=== PATIENT | male | born 1965 | race Caucasian/White ===

== ENCOUNTER 2021-02-01 05:52 | Emergency (ER) | payer OTHER ==
[~2021-02-01] VITALS: Ht 177.8 cm; Wt 75.1 kg
[2021-02-01] MEDS ORDERED: MORPHINE 4 MG/ML 1ML VIAL/SYRINGE (J2270) IV ONE (06:20)
[2021-02-01] MEDS ORDERED: NS 1,000 ML IV SCH (06:20)
[2021-02-01 07:35] LABS: BASO # 0.1 10^3/uL (0.0-0.2); BASO % 0.7 % (0.0-1.0); EOS # 0.4 10^3/uL (0.0-0.5); EOS % 3.4 % (0.0-3.0); HEMATOCRIT 45.8 % (42.0-52.0); HEMOGLOBIN 14.8 g/dl (13.5-17.5); LYMPH # 1.9 10^3/uL (1.5-5.0); LYMPH % 17.3 % (24.0-44.0); MEAN CORPUSCULAR HGB CONC 32.3 g/dl (32.0-36.5); MEAN CORPUSCULAR VOLUME 80.5 fl (80.0-96.0); MONO # 0.9 10^3/uL (0.0-0.8); NEUTROPHILS # 7.8 10^3/uL (1.5-8.5); NEUTROPHILS % 70.2 % (36.0-66.0); PLATELET COUNT, AUTOMATED 386 10^3/uL (150-450); RED BLOOD COUNT 5.69 10^6/uL (4.30-6.10); WHITE BLOOD COUNT 11.2 10^3/uL (4.0-10.0)
[2021-02-01 07:56] LABS: ALBUMIN 3.3 GM/DL (3.2-5.2); ALT/SGPT 60 U/L (12-78); BILIRUBIN,DIRECT < 0.1 MG/DL (0.0-0.2); BILIRUBIN,TOTAL 0.3 MG/DL (0.2-1.0); BLOOD UREA NITROGEN 11 MG/DL (7-18); CALCIUM LEVEL 9.1 MG/DL (8.5-10.1); CARBON DIOXIDE LEVEL 25 MEQ/L (21-32); CHLORIDE LEVEL 113 MEQ/L (98-107); CK-MB VALUE MASS 1.4 NG/ML (<3.6); CPK CREATINE PHOSPHOKINASE 63 U/L (39-308); CREATININE FOR GFR 0.72 MG/DL (0.70-1.30); GLOMERULAR FILTRATION RATE > 60.0 (>56); GLUCOSE, FASTING 96 MG/DL (70-100); LIPASE 73 U/L (73-393); MB/CK RELATIVE INDEX 2.22 (< OR =4); POTASSIUM SERUM 4.2 MEQ/L (3.5-5.1); SODIUM LEVEL 143 MEQ/L (136-145); TOTAL PROTEIN 6.8 GM/DL (6.4-8.2); TROPONIN I < 0.02 NG/ML (< 0.10)
[2021-02-01] MEDS ORDERED: ISOVUE-370 76% 100ML VIAL As Ordered ONE (08:00)
--- NOTE | 2021-02-01 08:35 | REP ---
INDICATION: SOB COMPARISON: None. TECHNIQUE: Axial contrast enhanced images from the thoracic inlet to the upper abdomen using pulmonary embolus technique with multiplanar re-formations. 100 ml Isovue 370 intravenous contrast material administered without complication. Examination was followed by CT of the abdomen and pelvis. This CT examination was performed using the following dose reduction techniques: Automated exposure control, adjustment of mA and/or kv according to the patient's size, and use of iterative reconstruction technique. FINDINGS: Evaluation is somewhat limited due to technical factors and timing. No obvious pulmonary embolus is appreciated although small emboli in distal branches to the lower lobes cannot definitively be excluded. Mild bibasilar atelectasis and dependent changes are identified. No focal consolidation or effusion. No pneumothorax. Tracheobronchial tree is patent. The mediastinum demonstrates normal thoracic aorta and heart/pericardium. No evidence for aneurysm or dissection. No pericardial effusion. Nonspecific mediastinal and primarily right hilar lymph nodes measure up to 10 mm and possibly reactive. Musculoskeletal structures are intact. IMPRESSION: 1. No definite evidence for pulmonary embolus. 2. Mild bibasilar atelectasis and dependent changes. Few presumed reactive lymph nodes in the mediastinum and right hilum are nonspecific. <Electronically signed by Cole Romo > 02/01/21 2012
--- NOTE | 2021-02-01 08:37 | REP ---
INDICATION: epigastric pain. COMPARISON: None TECHNIQUE: Axial contrast-enhanced images from the lung bases to the pubic symphysis using 100 cc Isovue 370 intravenous contrast material. Coronal and sagittal reformations obtained. This CT examination was performed using the following dose reduction techniques: Automated exposure control, adjustment of mA and/or kv according to the patient's size, and the use of iterative reconstruction technique. FINDINGS: Gallbladder demonstrates multiple gallstones with mild wall thickening and very subtle pericholecystic stranding raising the possibility of acute cholecystitis and correlation is required. Liver, spleen, pancreas, bilateral adrenal glands and kidneys are normal. Punctate bilateral nonobstructing renal calculi cannot be excluded. The enteric system including stomach, small, and large bowel appears normal. No evidence for obstruction or acute inflammatory process. Normal terminal ileum and appendix are identified in the right lower quadrant. Pelvis demonstrates normal bladder and age-appropriate prostate/seminal vesicles. No ascites. No free air. No intraperitoneal or retroperitoneal adenopathy. Abdominal aorta and vasculature appear normal. Musculoskeletal structures are intact and without acute osseous abnormality. IMPRESSION: 1. Findings suspicious for acute cholecystitis and correlation is required. 2. No further acute abdominopelvic pathology appreciated <Electronically signed by Cole Romo > 02/01/21 [id number]
--- NOTE | 2021-02-01 09:52 | REP ---
INDICATION: abdominal pain ro paxton per ct COMPARISON: None. TECHNIQUE: Real time gonzalez scale ultrasound examination using curved array transducer. FINDINGS: The liver demonstrates fatty infiltration without focal hepatic lesion. Pancreas is incompletely evaluated due to interposed bowel gas. The gallbladder demonstrates moderate wall thickening up to 6 mm along with multiple gallstones. No biliary ductal dilatation is appreciated and the common bile duct measures 7 mm diameter. Right kidney is normal in reniform shape without hydronephrosis and measures 11.1 x 5.8 x 5.4 cm. No ascites in the visualized right upper quadrant. IMPRESSION: 1. Gallbladder wall thickening and gallstones require correlation to exclude acute cholecystitis. No obvious pericholecystic fluid or biliary ductal dilatation. 2. Hepatosteatosis. <Electronically signed by Cole Romo > 02/01/21 [id number]
[2021-02-01] MEDS ORDERED: PERCOCET 5MG/325MG TAB PO ONE (10:05)
[2021-02-01] MEDS ORDERED: AUGMENTIN 875 MG TAB PO ONE (10:05)
[2021-02-01] MEDS ORDERED: AUGM875T28 PO (10:06)
[2021-02-01 11:08] VITALS: BP 163/88
--- NOTE | 2021-02-01 19:19 | ECGEPIP ---
[facility] - ED Test Date: 2021-02-01 Pat Name: TA SMITH Department: Room: - Gender: Male Ui Lead Developer: LUCILA : 1965 Requested By: HANNA Beaulieu Order Number: [id number] Reading MD: Linda Moya Measurements Intervals Mcdermitt Rate: 51 P: 67 ID: [id number] QRS: 66 QRSD: 106 T: 68 QT: 436 QTc: 401 Interpretive Statements Sinus bradycardia Delayed R wave progression Nonspecific ST T wave changes No prior ECG for comparison Electronically Signed on 02-01-2021 19:19:37 EDT by Linda Moya
== END 2021-02-01 11:20 | disposition home or self-care (01) ==
LOC: M ED 05:52
DX: K80.00 Calculus of gallbladder with acute cholecystitis without obstruction (principal); R00.1 Bradycardia, unspecified; J98.11 Atelectasis; K76.0 Fatty (change of) liver, not elsewhere classified; R06.02 Shortness of breath; F17.200 Nicotine dependence, unspecified, uncomplicated
CPT/HCPCS: 71275; 74177; 76705; 80048; 80076; 82550; 82553; 83690; 85025; 93005; 93041; 96361; 96374; 99285; J2270; Q9967